=== PATIENT | female | born 1970 | race Caucasian/White ===

== ENCOUNTER → 2019-08-17 08:39 | Outpatient (CLI) | payer OTHER, SELFPAY ==
--- NOTE | ~2019-08-17 | XR_ITS ---
EXAMINATION: XR knee LT 3V DATE: 08/17/2019 09:20 INDICATION: Chronic left knee pain. TECHNIQUE: 3 views of left knee were obtained. COMPARISON: Left knee radiographs 02/28/2014 FINDINGS: Bone alignment is normal. No fracture. There is mild tricompartmental osteoarthritis. No kn ee joint effusion. IMPRESSION: 1. Mild left knee osteoarthritis. Reviewed, dictated and finalized at location A. 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
== END ==
PROVIDERS: PCP Family Medicine; Visit Provider Physician Assistant Medical
DX: M17.12 Unilateral primary osteoarthritis, left knee (principal); G89.29 Other chronic pain
CPT/HCPCS: 73562

== ENCOUNTER 2019-09-01 07:56 | Outpatient (CLI) | payer OTHER, SELFPAY ==
--- NOTE | ~2019-09-01 | MM_ITS ---
EXAMINATION: MM screening reyes BI w [place] HISTORY: Screening mammogram, family history of breast cancer in her mother. TECHNIQUE: Craniocaudal and mediolateral oblique 3-D tomosynthesis images were obtained and synthetic 2-D images were generated. CAD analysis was submitted and interpreted. COMPARISON: 08/21/2018, 08/19/2017, 08/06/2016 BREAST PARENCHYMAL COMPOSITION: The breasts are heterogeneously dense, which may obscure small masses . FINDINGS: There is no evidence of suspicious mass, calcification, or architectural distortion to sugg est malignancy in either breast. There has been no suspicious interval change. IMPRESSION: 1. No mammographic evidence of malignancy. 2. Recommend routine screening mammography in one year. BI-RADS Category 1: Negative Reviewed, dictated and finalized at location A.
== END 2019-09-01 07:57 | disposition home or self-care (01) ==
PROVIDERS: PCP Family Medicine; Visit Provider Obstetrics & Gynecology
DX: Z12.31 Encounter for screening mammogram for malignant neoplasm of breast (principal)
CPT/HCPCS: 77063; 77067

== ENCOUNTER 2019-12-30 11:01 | Outpatient (CLI) | payer OTHER, SELFPAY ==
--- NOTE | ~2019-12-30 | XR_ITS ---
EXAMINATION:XR_[id number]_CR DATE: 12/30/2019 11:23 INDICATION: Neck pain TECHNIQUE: AP, lateral, lateral swimmers and odontoid views of the cervical spine are provided. COMPARISON: None FINDINGS: Alignment is normal. The odontoid is intact. No fracture is identified. Vertebral body heig hts and disk spaces are normal. Prevertebral soft tissues are normal. There is mild facet osteoarthri tis of the cervical spine. IMPRESSION: 1. Mild cervical spondylosis without acute findings. Reviewed, dictated and finalized at location A.
== END 2019-12-30 11:02 | disposition home or self-care (01) ==
LOC: ANHIMG 11:07
PROVIDERS: PCP Family Medicine; Visit Provider Physician Assistant Medical
DX: M47.892 Other spondylosis, cervical region (principal); M05.79 Rheumatoid arthritis with rheumatoid factor of multiple sites without organ or systems involvement
CPT/HCPCS: 72040

== ENCOUNTER → 2020-04-14 12:50 | Outpatient (CLI) | payer OTHER, SELFPAY ==
--- NOTE | ~2020-04-14 | XR_ITS ---
EXAMINATION: XR chest 2V DATE: 04/14/2020 13:13 INDICATION: Seropositive rheumatoid arthritis of multiple sites. TECHNIQUE: Frontal and lateral views of the chest were obtained. COMPARISON: Chest 2 views 10/08/2018 FINDINGS: The chest demonstrates clear lungs without pneumonia, pleural effusion, or pneumothorax. Th e heart size is normal. IMPRESSION: 1. No acute cardiopulmonary disease. Reviewed, dictated and finalized at location A.
== END ==
PROVIDERS: PCP Family Medicine; Visit Provider Physician Assistant Medical
DX: M05.79 Rheumatoid arthritis with rheumatoid factor of multiple sites without organ or systems involvement (principal); Z79.899 Other long term (current) drug therapy; D64.9 Anemia, unspecified; R76.8 Other specified abnormal immunological findings in serum
CPT/HCPCS: 71046

== ENCOUNTER → 2020-06-01 09:38 | Outpatient (CLI) | payer OTHER, SELFPAY ==
--- NOTE | ~2020-06-01 | CT_ITS ---
EXAMINATION: CT abdomen pelvis wo/w con DATE: 06/01/2020 10:29 INDICATION: Microscopic hematuria TECHNIQUE: Computed tomography (CT) of the abdomen and pelvis was performed without and with 130 cc O mnipaque 350 intravenous contrast. Automated exposure control and iterative reconstruction technique were employed. Exam dose: 1772.36 mGy-cm total exam DLP. COMPARISON: 06/01/2020 KUB 08/04/2013 CT abdomen pelvis without and with IV contrast material FINDINGS: The lungs are clear of infiltrate or consolidation. Normal heart size. No pericardial or pleural effusion. There is an approximately 3.6 x 4.8 cm cavernous hemangioma of the dome of the right hepatic lobe. There are numerous hypoattenuating lesions, likely cysts, scattered throughout the liver, measuring u p to approximately 1.3 cm maximal dimension. The spleen and pancreas are unremarkable. Normal adrenal glands. Probable 5 mm lower pole right renal cyst. The kidneys, ureters and urinary bladder are otherwise unr emarkable. There is no filling defect or thickening of the wall of the urinary bladder. The uterus an d adnexal areas are unremarkable. Normal caliber of the abdominal aorta. No intraperitoneal or retroperitoneal or pelvic mass lesion or adenopathy or ascites. No bowel obstruction, bowel wall thickening, pneumatosis or intraperitoneal free air. Diffuse idiopathic skeletal hyperostosis of the lower thoracic spine. Severe degenerative disc disease and minimal retrolisthesis at L5-S1. IMPRESSION: Stable prominent hepatic cavernous hemangioma and numerous scattered probable hepatic cy sts 5 mm right renal cyst Reviewed, dictated and finalized at Location A. Reviewed, dictated and finalized at location A. 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
--- NOTE | ~2020-06-01 | XR_ITS ---
XR abdomen/kub 1V DATE: 06/01/2020 10:29 INDICATION: Microscopic hematuria TECHNIQUE: AP projection, 2 views COMPARISON: 06/01/2020 CT abdomen pelvis examination FINDINGS: No evidence of bowel obstruction. The psoas shadows are intact. No visceromegaly is evident . Included skeletal structures are unremarkable. IMPRESSION: No significant abnormality Reviewed, dictated and finalized at Location A. Reviewed, dictated and finalized at location A. 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
[2020-06-01 10:05] LABS: Estimated Glomerular Filt Rate > 60
== END ==
PROVIDERS: PCP Family Medicine; Visit Provider Urology
DX: R31.29 Other microscopic hematuria (principal); N28.1 Cyst of kidney, acquired
CPT/HCPCS: 74018; 74178; Q9967

== ENCOUNTER 2020-09-07 16:25 | Outpatient (CLI) | payer BC, SELFPAY ==
--- NOTE | ~2020-09-07 | MM_ITS ---
EXAMINATION: MM screening reyes BI w [place] HISTORY: Screening TECHNIQUE: Craniocaudal and mediolateral oblique 3-D tomosynthesis images were obtained and synthetic 2-D images were generated. CAD analysis was submitted and interpreted. COMPARISON: Comparison to multiple prior studies sequentially, with oldest reviewed study dated 07/20. BREAST PARENCHYMAL COMPOSITION: The breasts are heterogeneously dense, which may obscure small masses . FINDINGS: There is no evidence of suspicious mass, calcification, or architectural distortion to sugg est malignancy in either breast. There has been no suspicious interval change. IMPRESSION: 1. No mammographic evidence of malignancy. 2. Recommend routine screening mammography in one year. BI-RADS Category 1: Negative Reviewed, dictated and finalized at location A.
== END 2020-09-07 16:26 | disposition home or self-care (01) ==
LOC: ANHIMG 16:27
PROVIDERS: PCP Family Medicine; Visit Provider Obstetrics & Gynecology
DX: Z12.31 Encounter for screening mammogram for malignant neoplasm of breast (principal)
CPT/HCPCS: 77063; 77067

== ENCOUNTER → 2021-03-13 10:14 | Outpatient (CLI) | payer BC, SELFPAY ==
--- NOTE | ~2021-03-13 | XR_ITS ---
EXAMINATION: XR chest 2V 03/13/2021 10:27 INDICATION: Cough PROCEDURE: 2 view chest COMPARISON: Comparison to multiple prior studies sequentially, with oldest reviewed study dated 11/2016. FINDINGS: The lungs are clear. The cardiomediastinal silhouette is within normal limits. There are no pleural effusions. There is no pneumothorax suspected. IMPRESSION: 1: NO ACUTE CARDIOPULMONARY DISEASE. Reviewed, dictated and finalized at location A.
== END ==
PROVIDERS: PCP Family Medicine; Visit Provider Physician Assistant Medical
DX: R05 Cough (principal)
CPT/HCPCS: 71046

== ENCOUNTER 2021-10-11 15:07 | Outpatient (CLI) | payer BC, SELFPAY ==
--- NOTE | ~2021-10-11 | MM_ITS ---
EXAMINATION: MM screening reyes BI w [place] HISTORY: Screening mammogram TECHNIQUE: Craniocaudal and mediolateral oblique 3-D tomosynthesis images were obtained and synthetic 2-D images were generated. CAD analysis was submitted and interpreted. COMPARISON: 09/07/2020, 09/01/2019, 08/21/2018 bilateral screening mammogram examinations BREAST PARENCHYMAL COMPOSITION: The breasts are heterogeneously dense, which may obscure small masses . FINDINGS: There is fibroglandular asymmetry on the right; diagnostic right mammogram is recommended, with ultrasound if required Possible 4.5 mm mass in the posterior mid to upper inner left breast (craniocaudal Tomosynthesis imag e 51/76). Diagnostic left mammogram is recommended, with ultrasound if required. IMPRESSION: 1. Bilateral mammographic asymmetries 2. Bilateral diagnostic mammography is recommended, with ultrasound if required BI-RADS Category 0: Incomplete: Needs additional imaging evaluation. Reviewed, dictated and finalized at location A.
== END 2021-10-11 15:08 | disposition home or self-care (01) ==
LOC: ANHIMG 15:08
PROVIDERS: PCP Family Medicine; Visit Provider Obstetrics & Gynecology
DX: Z12.31 Encounter for screening mammogram for malignant neoplasm of breast (principal); R92.8 Other abnormal and inconclusive findings on diagnostic imaging of breast
CPT/HCPCS: 77063; 77067

== ENCOUNTER 2021-10-25 11:23 | Outpatient (CLI) | payer BC, SELFPAY ==
--- NOTE | ~2021-10-25 | MMUS_ITS ---
EXAMINATION: MM diagnostic reyes BI w [place], US breast BI complete HISTORY: Right mammographic asymmetry and 4.5 mm posterior mid to upper inner left breast mass report ed on October 11, 2021 screening mammogram TECHNIQUE: Additional 3-D tomosynthesis images of both breasts were performed and synthetic 2-D image s were generated. CAD analysis was submitted and interpreted. High resolution complete bilateral basilio st ultrasound including all 4 quadrants and subareolar areas was performed. COMPARISON: October 11, 2021 bilateral screening mammogram FINDINGS: MAMMOGRAPHIC FINDINGS: 4 mm circumscribed oval opacity in the posterior upper outer right breast is likely a benign lymph no de. 6.8 mm mass is suggested in the inner mid right breast (craniocaudal compression Tomosynthesis image 38/73). Additional masses are not excluded due to heterogeneously dense stroma noted bilaterally. Bilateral c omplete breast ultrasound examination was performed. ULTRASOUND: Right breast: 1:00: 5.1 x 6.2 mm sonolucency with through transmission, consistent with simple cyst Subareolar: 3.1 x 4.1 mm simple cyst No suspicious mass or shadowing is detected. Left breast: No suspicious mass or shadowing is detected IMPRESSION: 1. Benign findings; no mammographic evidence of malignancy 2. Routine annual mammographic screening is recommended BI-RADS Category 2: Benign finding(s). Reviewed, dictated and finalized at location A. IMPRESSION: 1. Benign findings; no mammographic evidence of malignancy 2. Routine annual mammographic screening is recommended BI-RADS Category 2: Benign finding(s).
== END 2021-10-25 11:24 | disposition home or self-care (01) ==
PROVIDERS: PCP Family Medicine; Visit Provider Obstetrics & Gynecology
DX: R92.8 Other abnormal and inconclusive findings on diagnostic imaging of breast (principal)
CPT/HCPCS: 76641; 77062; 77066; G0279

== ENCOUNTER → 2022-03-19 11:06 | Outpatient (CLI) | payer BC, SELFPAY ==
--- NOTE | ~2022-03-19 | XR_ITS ---
EXAMINATION: XR chest 2V 03/19/2022 11:23 INDICATION: group home drug therapy PROCEDURE: 2 view chest COMPARISON: Comparison to multiple prior studies sequentially, with oldest reviewed study dated 09/11. FINDINGS: The lungs are clear. The cardiomediastinal silhouette is within normal limits. There are no pleural effusions. There is no pneumothorax suspected. IMPRESSION: 1: NO ACUTE CARDIOPULMONARY DISEASE. Reviewed, dictated and finalized at location B.
--- NOTE | ~2022-03-19 | XR_ITS ---
EXAMINATION: XR shoulder RT min 2V DATE: 03/19/2022 11:23 INDICATION: Right shoulder pain. TECHNIQUE: 4 views of right shoulder were obtained. COMPARISON: None. FINDINGS: Bone alignment is normal. No fracture. Glenohumeral joint is normal. There is mild acromioc lavicular joint osteoarthritis. IMPRESSION: 1. Mild right acromioclavicular joint osteoarthritis. Reviewed, dictated and finalized at location A.
== END ==
PROVIDERS: PCP Family Medicine; Visit Provider Physician Assistant Medical
DX: M19.011 Primary osteoarthritis, right shoulder (principal); G89.29 Other chronic pain; Z79.899 Other long term (current) drug therapy; M05.79 Rheumatoid arthritis with rheumatoid factor of multiple sites without organ or systems involvement
CPT/HCPCS: 71046; 73030

== ENCOUNTER 2022-04-18 16:10 | Outpatient (CLI) | payer BC, SELFPAY ==
--- NOTE | ~2022-04-18 | CT_ITS ---
EXAMINATION: CT BRAIN W/O DATE: 04/18/2022 16:35 INDICATION: Worst headache of life. TECHNIQUE: Computed tomography (CT) of the head was performed without intravenous contrast. The dose- length product was 605.33 mGy-cm. Automated exposure control and iterative reconstruction technique w ere employed. COMPARISON: No prior studies for comparison. FINDINGS: Normal brain parenchymal volume for age. Normal jorge-white differentiation. No acute intrac ranial hemorrhage, infarction, mass or mass effect. No ventriculomegaly or midline shift. Midline sagittal images demonstrate a normal corpus callosum, c raniovertebral junction and sella turcica. Basilar cisterns are patent. Paranasal sinuses and mastoids are pneumatized. No depressed skull fractures. IMPRESSION: 1. No acute intracranial abnormality. Reviewed, dictated and finalized at location B.
== END 2022-04-18 16:11 | disposition home or self-care (01) ==
LOC: ANHIMG 16:12
PROVIDERS: PCP Family Medicine; Visit Provider Physician Assistant
DX: G43.909 Migraine, unspecified, not intractable, without status migrainosus (principal); H53.149 Visual discomfort, unspecified; F40.298 Other specified phobia; R53.1 Weakness
CPT/HCPCS: 70450

== ENCOUNTER 2022-06-03 07:54 | Outpatient (RCR) | payer BC, SELFPAY ==
--- NOTE | 2022-06-03 08:55 | PTOPEVAL1 ---
Assessment and note entered by Barbara Miranda DPT Evaluation Information Assessment Status Evaluation Diagnosis R shoulder pain Onset 05/23/22 Subjective Information Pt reports that her R shoulder pain that has been going on for about 9 months with insidious onset. Pt reports that pain has been staying about the same over the last 9 months. Pt denies numbness/ tingling. She points to pain in a very specific spot on her anterior shoulder. She has most pain when picking objects up or reaching behind her back. She notes that her shoulder feels the best when her arm is at her side. At work, she has to reach for objects at about shoulder height repetively. Pt denies improvements in pain with rest. Pt reports that pain is constant and does not change based on the time of day. She reports some pain when lying on her R side or reaching acorss her body while sleeping. Pt wants to be able to reduce pain for work and home activities. Reported Pain Level Pain Score 0: Self Report Assessment PT Clinical Summary Pt presents to PT with insidious onset of chronic R shoulder pain and demonstrates decreased strength, decreased joint mobility, and altered posture. She presents with signs and symptoms consistent with shoulder impingement. 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 She was provided with an HEP focused on improving strength, mobility, and stability of the shoulder, and she was treated with inferior glides to improve joint biomechanics with R shoudler abduction. She will benefit from skilled PT to facilitate symptom relief, improve the aforementioned impairments, and return to functional and recreational activities. Plan of Care Interventions Electrical Stimulation,Hot Pack/Cold Pack,Manual Therapy,Patient/Caregiver Educati,Therapeutic Activities,Therapeutic Exercise PT Services Indicated Yes Treatment Frequency and 2x week for 12 visits Duration These treatments will address the objective and functional deficits as defined above. The patient will be advanced safely and appropriately in order for the patient to progress towards his/her prior level of function. Additional exercises will be introduced and as well as a comprehensive home exercise program upon discharge, if needed, ?to ensure carryover of functional gains achieved in the clinic. This treatment plan has been reviewed and agreement upon by the patient.
--- NOTE | 2022-07-01 08:57 | PTOPPROG ---
Assessment and note entered by Barbara Miranda DPT Evaluation Information Assessment Status Progress Diagnosis R shoulder pain Onset 05/23/22 Subjective Information Pt reports continued pain when lifting objects at work especially overhead and when reaching across the chest. Pt reports this pain is sharp and shooting when it happens. Pt reports that she has an MRI scheduled for 07/08. Assessment PT Clinical Summary Pt presents to PT with small improvements in ROM, strength, and pain since her initial evaluation. She is still limited in functional strength at work and reports continued difficulty with lifting activities and reaching at end ranges of motion. She is likely to benefit from additional skilled PT for her remaining 3 visits with focus more on scapular stability and strengthening at end ranges to further facilitate symptom relief, improve the aforementioned impairments, and return to full functional and recreational activities. Plan of Care PT Services Indicated Yes Treatment Frequency and Remaining 3 visits at 2x week Duration These treatments will address the objective and functional deficits as defined above. The patient will be advanced safely and appropriately in order for the patient to progress towards his/her prior level of function. Additional exercises will be introduced and as well as a comprehensive home exercise program upon discharge, if needed, ?to ensure carryover of functional gains achieved in the clinic. This treatment plan has been reviewed and agreement upon by the patient.
--- NOTE | 2022-07-18 11:41 | PTOPDC ---
Assessment and note entered by Rocio Gifford, PT Evaluation Information Assessment Status Discharge Diagnosis R shoulder pain Onset 05/23/22 Subjective Information Kristina Britt reports she had her MRI on her right shoulder on 07/08/21 and she has not seen the doctor since then but she looked at the report on her online chart and it showed OA in her AC joint. She did not have any tears though. She states her right shoulder is a little better overall but she does still get pain with reaching overhead and across her body intermittently. She reports no greater than 4/10 pain and feels she is ready to continue exercises independently. Reported Pain Level Pain Score 0: Self Report Assessment PT Clinical Summary Candie Britt has completed 12 skilled PT sessions for right shoulder pain. She has recently been diagnosed with AC joint OA after a MRI. She continues to have occasional pain with reaching overhead and across her body but it has improved overall. She objectively demonstrates improved right shoulder ROM and strength. 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 She is being discharged to an independent [facility]. Plan of Care Interventions Electrical Stimulation,Hot Pack/Cold Pack,Manual Therapy,Patient/Caregiver Educati,Therapeutic Exercise PT Services Indicated No Treatment Frequency and Discharge Duration
== END 2022-07-18 18:22 | disposition home or self-care (01) ==
LOC: CHSPT 07:54
PROVIDERS: PCP Family Medicine; Visit Provider Physician Assistant Medical
DX: M25.511 Pain in right shoulder (principal); G89.29 Other chronic pain
CPT/HCPCS: 97014; 97110; 97140; 97161; 97530; G0283

== ENCOUNTER 2022-07-08 16:06 | Outpatient (CLI) | payer BC, SELFPAY ==
--- NOTE | ~2022-07-08 | MR_ITS ---
MRI of the right shoulder Technique: Axial proton-density fat-sat images, coronal proton density fat-sat and T2 fat-sat images, and sagittal T1-weighted and T2 fat-sat images were acquired. Clinical History: Pain Findings: There is advanced AC joint degenerative change, with only minimal subacromial spur however. Coracoclavicular, coracoacromial, and coracohumeral ligaments are intact. There is mild supraspinatus and infraspinatus tendinosis, without partial or full-thickness tear. Sub scapularis tendon is intact, without tear. Tendon of the long head of the biceps is probably intact, though somewhat poorly visualized. No definite labral tear is seen. Probable sublabral recess noted superiorly. Inferior glenohumeral ligament is intact. No degenerative change or effusion of the glenohumeral join t. There is minimal fluid distention of the subacromial/subdeltoid bursa. No muscle atrophy or edema. Impression: Mild rotator cuff tendinosis without partial or full-thickness tear. No definite labral tear. Advanced AC joint degenerative change. Minimal subacromial/subdeltoid bursitis. Reviewed, dictated and finalized at [facility]. 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 No definite labral tear. Advanced AC joint degenerative change. Minimal subacromial/subdeltoid bursitis.
== END 2022-07-08 16:07 ==
PROVIDERS: PCP Family Medicine; Visit Provider Physician Assistant Medical
DX: M19.011 Primary osteoarthritis, right shoulder (principal)
CPT/HCPCS: 73221

== ENCOUNTER 2022-12-11 16:16 | Outpatient (CLI) | payer BC, SELFPAY ==
--- NOTE | ~2022-12-11 | MM_ITS ---
EXAMINATION: MM screening reyes BI w [place] HISTORY: Screening mammogram TECHNIQUE: Craniocaudal and mediolateral oblique 3-D tomosynthesis images were obtained and synthetic 2-D images were generated. CAD analysis was submitted and interpreted. COMPARISON: 10/25/2021 diagnostic bilateral mammogram and complete bilateral breast ultrasound examinat ion 10/11/2021, 09/07/2020, 09/01/2019 bilateral screening mammogram examinations BREAST PARENCHYMAL COMPOSITION: The breasts are heterogeneously dense, which may obscure small masses . FINDINGS: There is no evidence of suspicious mass, calcification, or architectural distortion to sugg est malignancy in either breast. There has been no suspicious interval change. IMPRESSION: 1. No mammographic evidence of malignancy. 2. Recommend routine screening mammography in one year. BI-RADS Category 1: Negative Reviewed, dictated and finalized at location A.
== END 2022-12-11 16:17 | disposition home or self-care (01) ==
LOC: ANHIMG 16:18
PROVIDERS: PCP Family Medicine; Visit Provider Obstetrics & Gynecology
DX: Z12.31 Encounter for screening mammogram for malignant neoplasm of breast (principal)
CPT/HCPCS: 77063; 77067

== ENCOUNTER 2023-06-11 08:20 | Outpatient (CLI) | payer BC, SELFPAY ==
--- NOTE | ~2023-06-11 | DEXA_ITS ---
Bone Density Report Name: SURY VAZQUEZ Age: 52 Sex: Female Ethnicity: White Date of : 1970 Indication: screening for osteoporosis; rheumatoid arthritis; postmenopausal Referring Provider: UNKNOWN, UNKNOWN Study: Bone densitometry was performed. Exam Date: June 11, 2023 Accession number: [id number] Bone Density: Region BMD T-score Z-score Classification AP Spine(L1-L4) 1.074 0.2 1.2 Normal Femoral Neck (Left) 0.800 -0.4 0.5 Normal Total Hip (Left) 0.907 -0.3 0.3 Normal Femoral Neck (Right) 0.837 -0.1 0.9 Normal Total Hip (Right) 0.955 0.1 0.7 Normal Femoral Neck Mean 0.818 -0.3 0.7 Normal Total Hip Mean 0.931 -0.1 0.5 Normal World Health Organization criteria for BMD impression classify patients as: Normal (T-score at or above -1.0), Osteopenia (T-score between -1.0 and -2.5), or Osteoporosis (T-score at or below -2.5). 10-year Fracture Risk: FRAX not reported because: Premenopausal woman All T-scores for Spine Total, Hip Total, Femoral Neck at or above -1.0 Clinical Information Provided by Patient: Has rheumatoid arthritis Has used the following medications: Vitamin D, Calcium Patient maximum height was 67.0 Menopause Age: 52 Does not regularly consume dairy products Drinks caffeinated beverages Onset of menses at age 11 Premenopausal Number of children 2 Impression: The patient's bone mass is within expected range for age, gender and ethnicity. Discussion: BONE DENSITY IS WITHIN EXPECTED LIMITS FOR AGE, SEX AND RACE. Bone density is within expected limits for age, sex and race at all sites measured. The patient should follow a healthful lifestyle (good nutrition with adequate calcium and vitamin D, and appropriate weight-bearing exercise). Follow-Up: Consider repeating this study in 5 years or sooner if there is some new clinical indication. Reported by: Dr. Aditya Canada on 06/11/2023 9:05:00 AM. Reviewed, dictated and finalized at location AAndreas SARAH
== END 2023-06-11 08:21 | disposition home or self-care (01) ==
LOC: CHSIMG 08:23
PROVIDERS: PCP Family Medicine
DX: M05.79 Rheumatoid arthritis with rheumatoid factor of multiple sites without organ or systems involvement (principal); M32.9 Systemic lupus erythematosus, unspecified; Z79.899 Other long term (current) drug therapy; Z78.0 Asymptomatic menopausal state
CPT/HCPCS: 77080

== ENCOUNTER 2023-12-15 08:55 | Outpatient (CLI) | payer BC, SELFPAY ==
--- NOTE | ~2023-12-15 | MM_ITS ---
EXAMINATION: MM screening reyes BI w [place] HISTORY: Screening mammogram, family history of breast cancer in her mother. TECHNIQUE: Craniocaudal and mediolateral oblique 3-D tomosynthesis images were obtained and synthetic 2-D images were generated. CAD analysis was submitted and interpreted. COMPARISON: 12/11/2022, 10/25/2021, 10/11/2021, 09/07/2020 BREAST PARENCHYMAL COMPOSITION:Not Dense. There are scattered areas of fibroglandular density. FINDINGS: No suspicious mass, calcification, or architectural distortion are identified in either [place] ast to suggest malignancy. There has been no suspicious interval change. IMPRESSION: No mammographic evidence of malignancy. Recommend routine screening mammography in one year. BI-RADS Category 1: Negative Reviewed, dictated and finalized at [facility].
== END 2023-12-15 08:56 | disposition home or self-care (01) ==
LOC: ANHIMG 08:58
PROVIDERS: PCP Family Medicine; Visit Provider Obstetrics & Gynecology
DX: Z12.31 Encounter for screening mammogram for malignant neoplasm of breast (principal)
CPT/HCPCS: 77063; 77067

== ENCOUNTER 2024-02-24 15:46 | Outpatient (CLI) | payer BC, SELFPAY ==
--- NOTE | ~2024-02-24 | XR_ITS ---
EXAMINATION: XR wrist RT w scaphoid DATE: 02/24/2024 16:14 INDICATION: Right wrist injury. TECHNIQUE: 4 views of right wrist were obtained. COMPARISON: None. FINDINGS: Bone alignment is normal. No fracture. Joint spaces are normal. IMPRESSION: 1. Normal right wrist. Reviewed, dictated and finalized at location A. IMPRESSION: 1. Normal right wrist.
--- NOTE | ~2024-02-24 | XR_ITS ---
EXAMINATION: XR elbow RT min 3V DATE: 02/24/2024 16:14 INDICATION: Right elbow injury and pain. TECHNIQUE: 4 views of right elbow were obtained. COMPARISON: None. FINDINGS: Alignment is normal. There is a nondisplaced fracture of radial head. Joint spaces are norm al. There is an elbow joint effusion. IMPRESSION: 1. Nondisplaced fracture of radial head. 2. Elbow joint effusion. Reviewed, dictated and finalized at location A.
--- NOTE | ~2024-02-24 | XR_ITS ---
EXAMINATION: XR forearm RT 2V DATE: 02/24/2024 16:14 INDICATION: Right forearm injury. TECHNIQUE: 2 views of right forearm were obtained. COMPARISON: Right elbow radiographs 02/24/2024 teslas fracture of radial head. No fracture. Elbow joint effusion. FINDINGS: Alignment is normal. There is a nondisplaced fracture of radial head. Joint spaces are norm al. There is an elbow joint effusion. IMPRESSION: 1. Nondisplaced fracture of radial head. 2. Elbow joint effusion. Reviewed, dictated and finalized at location A.
== END 2024-02-24 15:47 | disposition home or self-care (01) ==
PROVIDERS: PCP Family Medicine; Visit Provider Physician Assistant Medical
DX: S52.124A Nondisplaced fracture of head of right radius, initial encounter for closed fracture (principal); M25.531 Pain in right wrist; W19.XXXA Unspecified fall, initial encounter; M25.421 Effusion, right elbow
CPT/HCPCS: 73080; 73090; 73110

== ENCOUNTER 2024-03-22 10:36 | Outpatient (CLI) | payer BC, SELFPAY ==
--- NOTE | ~2024-03-22 | XR_ITS ---
Right elbow Technique: AP, oblique, and lateral views were obtained. Clinical History: Pain Findings: There is subtle linear lucency across the radial neck, consistent with healing fracture. Nerissa int spaces are preserved. There is no displacement of the fat pads, and soft tissues are unremarkable . Impression: Healing transverse fracture at the proximal radial neck. No definite intra-articular extension identi fied. Reviewed, dictated and finalized at location . Impression: Healing transverse fracture at the proximal radial neck. No definite intra-gatito cular extension identified.
== END 2024-03-22 10:37 | disposition home or self-care (01) ==
PROVIDERS: PCP Family Medicine; Visit Provider Orthopaedic Surgery
DX: S52.134D Nondisplaced fracture of neck of right radius, subsequent encounter for closed fracture with routine healing (principal); X58.XXXD Exposure to other specified factors, subsequent encounter
CPT/HCPCS: 73080

== ENCOUNTER 2025-03-30 09:23 | Outpatient (CLI) | payer BC, SELFPAY ==
--- NOTE | ~2025-03-30 | MM_ITS ---
EXAMINATION: MM screening [facility] w [place] HISTORY: Screening TECHNIQUE: Craniocaudal and mediolateral oblique 3-D tomosynthesis images were obtained and synthetic 2-D images were generated. CAD analysis was submitted and interpreted. COMPARISON: Comparison to multiple prior studies sequentially, with oldest reviewed study dated , 09/01/2019 BREAST PARENCHYMAL COMPOSITION: There are scattered areas of fibroglandular density. FINDINGS: There is no evidence of suspicious mass, calcification, or architectural distortion to suggest malignancy in either breast. IMPRESSION: 1. No mammographic evidence of malignancy. 2. Recommend routine screening mammography in one year. BI-RADS Category 1: Negative Reviewed, dictated and finalized at location B.
== END 2025-03-30 09:24 | disposition home or self-care (01) ==
LOC: ANHFOHIMG 09:24
PROVIDERS: PCP Family Medicine; Visit Provider Obstetrics & Gynecology
DX: Z12.31 Encounter for screening mammogram for malignant neoplasm of breast (principal)
CPT/HCPCS: 77063; 77067